=== PATIENT | female | born 1955 | race Caucasian/White ===

== ENCOUNTER 2022-03-20 06:36 | Day surgery (SDC) | payer MEDICAID ==
[~2022-03-20] VITALS: Ht 154.9 cm; Wt 46.7 kg
[2022-03-20] MEDS: MIDAZOLAM HCL 5 MG/5 ML VIAL ONE ×5 (07:35→07:58)
[2022-03-20] MEDS: fentaNYL CITRATE/PF 100 MCG/2 ML AMP ONE ×4 (07:35→07:51)
[2022-03-20] MEDS ORDERED: MIDAZOLAM HCL 5 MG/5 ML VIAL ONE (08:03)
[2022-03-20] MEDS ORDERED: fentaNYL CITRATE/PF 100 MCG/2 ML AMP ONE (08:03)
[2022-03-20 12:25] VITALS: BP_SYST 180
== END 2022-03-20 10:35 | disposition home or self-care (01) ==
LOC: SDS 06:36 → SMU 06:37 → SDS 10:35
PROVIDERS: ATTEND Internal Medicine Gastroenterology
DX: Z12.11 Encounter for screening for malignant neoplasm of colon (principal); D12.3 Benign neoplasm of transverse colon; D12.4 Benign neoplasm of descending colon; K62.1 Rectal polyp; K64.9 Unspecified hemorrhoids; Z79.899 Other long term (current) drug therapy; Z20.822 Contact with and (suspected) exposure to COVID-19
CPT/HCPCS: 36415; 45385; 88305; 99152; 99153; U0003; G0378; J2250; J3010; 45378